=== PATIENT | female | born 1970 | race Caucasian/White ===

== ENCOUNTER → 2017-12-06 | Day surgery (SDC) | payer OTHER ==
[2017-11-30 13:14] LABS: BASOPHILS # (AUTO) 0.1 (0.0-0.1); BASOPHILS % 0.7 % (0.0-1.0); EOSINOPHILS # (AUTO) 0.5 (0.0-0.4); EOSINOPHILS % 4.8 % (0.0-6.0); HEMATOCRIT 34.2 % (34.2-44.1); HEMOGLOBIN 10.7 g/dL (12.0-16.0); LYMPHOCYTES # (AUTO) 2.6 (1.0-3.2); LYMPHOCYTES % 23.9 % (18.0-39.1); MEAN CORPUSCULAR HEMOGLOBIN 27.3 pg (28-32); MEAN CORPUSCULAR HGB CONC 31.3 g/dL (31-35); MEAN CORPUSCULAR VOLUME 87.2 fL (81-99); MONOCYTES # (AUTO) 0.6 (0.2-0.8); MONOCYTES % 5.6 % (4.4-11.3); NEUTROPHILS # (AUTO) 6.9 (2.1-6.9); NEUTROPHILS % 64.5 % (38.7-80.0); PLATELET COUNT 353 x10e3/uL (140-360); RED BLOOD COUNT 3.92 x10e6/uL (3.6-5.1); RED CELL DISTRIBUTION WIDTH 14.7 % (11.7-14.4)
--- NOTE | 2017-11-30 13:31 | Diagnostic Imaging Report ---
ADDENDUM #1 Addendum: Preop for elizabeth Signed by: Dr. Keenan Junior MD on 12/04/2017 11:43 AM ORIGINAL REPORT EXAM: XR CHEST 2 VIEWS DATE: 11/30/2017 12:55 PM INDICATION: Pre-op COMPARISON: 01/28/2016, 02/14/2013 FINDINGS: Lines and Tubes: None Heart and Mediastinum: Heart is not enlarged. Ill-defined right paratracheal opacity is unchanged dating back to 2012. Lungs and Pleura: No significant pleural effusion, pneumothorax, or focal consolidation. Minimal opacities in the lung bases statistically represent atelectasis, however, infectious process could have a similar appearance. Bones and Soft Tissues: Cervical orthopedic hardware. Eventration right hemidiaphragm. IMPRESSION: 1. Stable chronic changes. Signed by: Dr. Keenan Junior MD on 11/30/2017 1:28 PM
[~2017-12-06] MED LIST: BACLOFEN10 MG PO; BENZONATATE200 MG PO; BIOTIN300 MCG PO; BUPIVACAINE HCL 0.5% INJ 30 ML VIAL INJ ONE; CLONAZEPAM1 MG PO; COMBIVENT RESPIM4 GM IH; COMBIVENT RESPIM4 GM INH; COREG25 MG PO; DIGOXIN250 MCG PO; DOXEPIN HCL100 MG PO; DOXEPIN HCL50 MG PO; DOXYCYCLINE HY100 M3 PO; DULERA 200 MCG/13 GM; ETODOLAC400 MG PO; FENTANYL CITRATE/PF 100MCG/2 ML INJ ONE; FLEXERIL10 MG PO; FUROSEMIDE40 MG PO; GABAPENTIN600 MG PO; HALOPERIDOL1 MG PO; HYDROCODON-ACE1 EA11 PO; IPRATROPIU0.2 MG/1 M INH; IRON325 MG PO; LAMICTAL200 MG PO; LAMOTRIGINE200 MG PO; LANTUS 3ML100 UNITS/ SQ; LASIX40 MG PO; LEVAQUIN500 MG PO; LEVAQUIN750 MG PO; LEVOTHYROXINE112 MCG PO; LITHIUM PO; MIDAZOLAM HCL 2 MG/2 ML VIAL ONE; NEOSTIGMINE 1 MG/ML 10ML VIAL ONE; NIFEDIPINE XL30 MG PO; NOVOLOG MI100 UNIT/1 SQ; NOVOLOG100 UNIT/1 SQ; NOVOLOG100 UNITS/ SC; NOVOLOG100 UNITS/ SQ; NOVOLOG100 UNITS1 SQ; PANTOPRAZOLE SO40 MG PO; PERCOCET 10-321 EACH PO; PREDNISONE 40 MG PO; PREDNISONE10 MG PO; PRISTIQ ER100 MG PO; RISPERDAL2 MG PO; SINGULAIR10 MG PO; TESSALON PERLE100 MG PO; VITAMIN D1000 UNI1 PO; ZOLPIDEM TARTRA10 MG PO
[2017-12-06] MEDS: CEFAZOLIN SOD 2 GM/D5W 50ML 50 ML IV ONE (08:27)
--- NOTE | 2017-12-06 10:50 | Operative Report ---
DATE OF PROCEDURE: December 06, 2017 PREOPERATIVE DIAGNOSES 1. Ulcer, right 2nd digit. 2. Rigid hammertoe, right 2nd digit. POSTOPERATIVE DIAGNOSES 1. Ulcer, right 2nd digit. 2. Rigid hammertoe, right 2nd digit. PROCEDURES 1. Arthrodesis, proximal interphalangeal joint, right foot. 2. Tenotomy and capsulotomy, metacarpophalangeal joint, right foot. PATHOLOGY: None. ANESTHESIA: General anesthetic. HEMOSTASIS: Pneumatic ankle tourniquet at 350 mmHg. ESTIMATED BLOOD LOSS: Less than 10 mL. MATERIALS: A Smart Toe intramedullary arthrodesis implant by [employer], reference number is [id number], lot number [id number]. CONDITION: Stable. PROCEDURE IN DETAIL: Under mild sedation, the patient was brought to the operating room and placed on the operating table in the supine position. Following IV sedation, anesthesia was obtained with a general anesthetic. At this point, the right foot was scrubbed, prepped and draped in the usual aseptic manner. The pneumatic thigh tourniquet was inflated, and the leg was lowered to the table. Attention was then directed to the dorsal aspect of the right foot where a linear incision was made overlying the PIPJ joint. The incision was deepened down extending to the most distal aspect of the MPJ joint. The incision was deepened with blunt dissection taking care to retract and cauterize neurovascular structures as necessary. It was deepened down to the tendon. The extensor tendon was then tenotomized in a transverse fashion. The PIPJ joint was then exposed. It was visualized utilizing an oscillating saw. The joint was then resected and was prepared for arthrodesis. At this point, a Smart Toe 19 mm 10-angle was then used for fixation of the arthrodesis. There was noted to be adequate alignment clinically and with the use of intraop fluoroscopy. The area was then flushed with copious amount of normal sterile saline solution. Attention was then directed to the metatarsophalangeal joint where the tendon was released. The joint was released in order to decrease the contracture and release the full contracture of the hammertoe. This was noted clinically and with the use of intraop fluoroscopy. The incisions were then flushed with copious amounts of normal sterile saline solution. The tissue was then closed closing the deepest layer with 4-0 Vicryl and then 4-0 nylon. A clean dressing was applied consisting of Adaptic, ointment, 4 x 4's, Kerlix, and Evin bandage. Tourniquet was deflated. There was noted to be hyperemic response to all the digits. The patient tolerated the procedure and anesthesia well without complications. Was transferred to the recovery room with vital signs stable and vascular status intact to both feet. The patient will be discharged home when she was met criteria. She was given instructions to be nonweightbearing, ice and elevate the foot while at rest. Follow up with me in the office, and to call the office for any questions or concerns, or any problems arise. Job#: [id number] SUNIL
[2017-12-06 11:00] VITALS: BP 122/66
--- OUTSIDE RECORDS SUMMARY | 2017-12-29 07:08 | XMS REPORT ---
Author Author [facility] Address Unknown Phone Unavailable Care Team Providers Care Diet Clerk Name Role Phone ARLIN WEATHERS Unavailable Unavailable Problems This patient has no known problems. Allergies, Adverse Reactions, Alerts This patient has no known allergies or adverse reactions. Medications This patient has no known medications. Results Test Description Test Time Test Comments Text Results Atomic Results Result Comments CHEST 2 VIEWS 2017-11-30 13:27:00 [facility] [address] [place] [address] Patient Name: ELENITA BACK MR #: [id number] : 1970 Age/Sex: 47/F Req #: [id number] [facility] Physician: Ordered by: ARLIN WEATHERS DPM Report #: [id number] Location: OR Room/Bed: Procedure: [id number] DX/CHEST 2 VIEWS Exam Date: 11/30/17 Exam Time: 1250 REPORT STATUS: Signed ADDENDUM # 1 Addendum: Preop for elizabeth Signed by: Dr. Keenan Gutiérrez MD on 12/04/2017 11:43 AM ORIGINAL REPORT EXAM: XR CHEST 2 VIEWS DATE: 11/30/2017 12:55 PM INDICATION: Pre-op COMPARISON: , 02/14/2013 FINDINGS: Lines and Tubes: None Heart and Mediastinum: Heart is not enlarged. Ill-defined right paratracheal opacity is unchanged dating back to 2012. Lungs and Pleura: No significant pleural effusion, pneumothorax, or focal consolidation. Minimal opacities in the lung bases statistically represent atelectasis, however, infectious process could have a similar appearance. Bones and Soft Tissues: Cervical orthopedic hardware. Eventration right hemidiaphragm. IMPRESSION: 1. Stable chronic changes. Signed by: Dr. Keenan Gutiérrez MD on 11/30/2017 1:28 PM Dictated By: KEENAN GUTIÉRREZ MD [id number] Transcribed By: AMPARO on 11/30/17 1328 COPY TO: ARLIN WEATHERS DPM
== END | disposition home or self-care (01) ==
LOC: OR 07:17
PROVIDERS: ATTEND Podiatrist Foot & Ankle Surgery
DX: L97.519 Non-pressure chronic ulcer of other part of right foot with unspecified severity (principal); M20.41 Other hammer toe(s) (acquired), right foot; E11.9 Type 2 diabetes mellitus without complications; K21.9 Gastro-esophageal reflux disease without esophagitis; J45.909 Unspecified asthma, uncomplicated; D64.9 Anemia, unspecified; F41.9 Anxiety disorder, unspecified; F31.9 Bipolar disorder, unspecified; Z91.048 Other nonmedicinal substance allergy status; G62.9 Polyneuropathy, unspecified; Z88.8 Allergy status to other drugs, medicaments and biological substances; Z01.812 Encounter for preprocedural laboratory examination; Z01.818 Encounter for other preprocedural examination; Z79.4 Long term (current) use of insulin; Z87.891 Personal history of nicotine dependence
CPT/HCPCS: 36415; 71046; 76000; 82948; 84702; 85025; J2250; J2710